=== PATIENT | female | born 1970 | race Caucasian/White ===

== ENCOUNTER 2022-04-18 13:47 | Inpatient (IN) | payer OTHER ==
--- NOTE | 2022-04-18 14:15 | NUR ---
SE RECIBE PTE ALERTA Y ORIENTADA X3, CON ESPOSO. PTE REFIERE QUE DR ALEXIS ALMODOVAR DEL [facility], LA ENVIE A ER POR INFECCION BACTERIANA AGUDA, DADO D A RESULTADOS DE LABORATORIO DEL [facility]. PTE VERBALIZA FIEBRE EN LAS ULTIMAS 30 HORAS, AL MOMENTO NO PRESENTA, ESTA TOMANDO TYLENOL Q4H EN GUO HOGAR. PTE REFIERE 3 EPISODIOS DE VOMITOS, Y DOLOR DE ESPALDA, NO TOLERA ESTAR SENTADA. SE BRITTANY SV Y SE UBICA.
--- NOTE | 2022-04-18 15:29 | NUR ---
SE EDCUAA PTE SOBRE TX MEDICO ESTA REFIERE ENTENDER. SE JONE MUESTRAS DE LABORATORIO UTILIZANDO MEDIDAS ASEPTICAS.
[2022-04-19] MEDS ORDERED: PREMPRO 0.45-11 EACH (10:51)
[2022-04-19] MEDS ORDERED: ESTROGEL50 GM (10:51)
[2022-04-19] MEDS ORDERED: OMEPRAZOLE20 MG (10:51)
[2022-04-19] MEDS ORDERED: PROGESTERONE200 MG (10:51)
[2022-04-22] MEDS ORDERED: CIPRO500 MG PO (13:09)
[2022-04-22] MEDS ORDERED: LEVSIN/SL0.125 MG SL (13:09)
[2022-04-22] MEDS ORDERED: ULTRACET PO (13:10)
== END 2022-04-22 15:23 | disposition home or self-care (01) | DRG 690 ==
LOC: ER 13:47 → SURH 19:38 → SURG 19:38 → SEC-K 19:38 → SURH 04-19 01:01 → SURG 04-19 13:20
PROVIDERS: ADMIT Internal Medicine; ATTEND Internal Medicine
PROC: BW21ZZZ Computerized Tomography (CT Scan) of Abdomen and Pelvis (ICD-10-PCS; principal; 2022-04-18)
DX: N39.0 Urinary tract infection, site not specified (principal); N12 Tubulo-interstitial nephritis, not specified as acute or chronic; F12.90 Cannabis use, unspecified, uncomplicated; Z20.822 Contact with and (suspected) exposure to COVID-19

== ENCOUNTER 2024-09-26 12:45 | Outpatient (CLI) | payer OTHER ==
[~2024-09-26 12:45] MED LIST: CIPRO500 MG PO; ESTROGEL50 GM; LEVSIN/SL0.125 MG SL; OMEPRAZOLE20 MG; PREMPRO 0.45-11 EACH; PROGESTERONE200 MG; ULTRACET PO
== END 2024-09-26 12:55 | disposition home or self-care (01) ==
LOC: SONOGRAMA 12:45
PROVIDERS: ATTEND Specialist
DX: R10.2 Pelvic and perineal pain (principal)